=== PATIENT | male | born 1985 | race Caucasian/White ===

== ENCOUNTER 2021-02-15 08:00 | Outpatient (CLI) | payer OTHER | END 2021-02-15 08:30 | disposition home or self-care (01) | LOC: PPH VACUNA 08:00 | DX: Z23 Encounter for immunization (principal) ==

== ENCOUNTER 2021-03-08 10:00 | Outpatient (CLI) | payer OTHER | END 2021-03-08 10:15 | disposition home or self-care (01) | LOC: PPH VACUNA 10:00 | PROVIDERS: ATTEND Emergency Medicine Pediatric Emergency Medicine | DX: Z23 Encounter for immunization (principal) ==

== ENCOUNTER 2021-11-11 11:41 | Emergency (ER) | payer OTHER ==
[~2021-11-11] VITALS: Ht 175.3 cm; Wt 83.9 kg
[2021-11-11] MEDS ORDERED: BACITRACIN-POLY15 G1 OP (12:59)
[2021-11-11] MEDS ORDERED: WOUND (13:21)
[2021-11-11] MEDS ORDERED: [UNRECOGNIZED DRUG - OTHER] (13:21)
== END 2021-11-11 13:19 ==
LOC: ER 11:41
DX: S01.112A Laceration without foreign body of left eyelid and periocular area, initial encounter (principal); W50.0XXA Accidental hit or strike by another person, initial encounter; Y93.89 Activity, other specified; Y92.89 Other specified places as the place of occurrence of the external cause